=== PATIENT | female | born 1985 | race Caucasian/White ===

== ENCOUNTER 2017-12-07 11:52 | Inpatient (IN) | payer MEDICAID, OTHER ==
[~2017-12-07] VITALS: Ht 165.1 cm; Wt 70.3 kg
[2017-12-07] MEDS ORDERED: HALOPERIDOL LACTATE 5 MG/ML VIAL IM ONE (12:30)
[2017-12-07] MEDS ORDERED: DiphenhydrAMINE HCL 50 MG/ML VIAL IM ONE (12:30)
[2017-12-07] MEDS ORDERED: LORazepam 2 MG/ML VIAL IM ONE (12:30)
[2017-12-07] MEDS ORDERED: GuaiFENesin/D-METHORPHAN [SUGAR-FREE] 200-20MG/10 ML SYRUP UDCUP PO PRN (13:00)
[2017-12-07] MEDS ORDERED: LORazepam 2 MG TABLET PO PRN (13:00)
[2017-12-07] MEDS ORDERED: PROMETHAZINE HCL 25 MG TABLET PO PRN (13:00)
[2017-12-07] MEDS ORDERED: HydrOXYzine PAMOATE 50 MG CAPSULE PO PRN (13:00)
[2017-12-07] MEDS ORDERED: LOPERAMIDE HCL 2 MG CAPSULE PO PRN (13:00)
[2017-12-07] MEDS ORDERED: MAGNESIUM HYDROXIDE SUSPENSION 30 ML UDCUP PO PRN (13:00)
[2017-12-07] MEDS ORDERED: MAG HYDROX/AL HYDROX/SIMETH ES 30 ML SUSPENSION UDCUP PO PRN (13:00)
[2017-12-07] MEDS ORDERED: ACETAMINOPHEN 325 MG TABLET PO PRN ×2 (13:00→14:30)
[2017-12-07] MEDS ORDERED: TUBERCULIN, PURIFIED PROTEIN DERIVATIVE 5 TU/0.1 ML SYG ID ONE (13:00)
[2017-12-07] MEDS ORDERED: ZOLPIDEM TARTRATE 10 MG TABLET PO PRN (13:00)
[2017-12-07] MEDS ORDERED: OLANZapine 5 MG RAPDIS TABLET PO PRN (13:00)
[2017-12-07 13:27] LABS: BASOPHILS % (AUTO) 0.7 % (0.0-2.0); EOSINOPHILS % (AUTO) 0.2 % (1.0-6.0); HEMATOCRIT 35.8 % (36-46); HEMOGLOBIN 12.2 g/dL (12.0-16.0); LYMPHOCYTES # (AUTO) 2.1 K/uL (1.0-4.8); LYMPHOCYTES % (AUTO) 26.3 % (22.0-44.0); MEAN CORPUSCULAR HEMOGLOBIN 31.3 pg (26.0-34.0); MEAN CORPUSCULAR HGB CONC 34.2 G/dL (31.0-37.0); MEAN CORPUSCULAR VOLUME 91 fL (80-100); MONOCYTES # (AUTO) 0.8 K/uL (0.1-1.0); MONOCYTES % (AUTO) 9.7 % (2.0-9.0); NEUTROPHILS % (AUTO) 63.1 % (40.0-70.0); PLATELET COUNT (AUTO) 215 K/uL (150-450); RED BLOOD CELL COUNT(AUTO) 3.92 MIL/uL (4.00-5.20); RED CELL DISTRIBUTION WIDTH 14.4 % (11.5-14.5)
[2017-12-07 13:39] LABS: ANION GAP 11 mmol/L (8-16); CALCIUM, TOTAL 8.8 mg/dL (8.8-10.5); CARBON DIOXIDE 24 mmol/L (22-29); CHLORIDE 106 mmol/L (98-107); CREATININE 0.73 mg/dL (0.60-1.30); GLOMERULAR FILTR. RATE CALC > 60 mL/min (>60); GLUCOSE,RANDOM 89 mg/dL (70-110); POTASSIUM 3.1 mmol/L (3.5-5.1); SODIUM SERUM 141 mmol/L (136-145); UREA NITROGEN, BLOOD 18 mg/dL (7-18)
[2017-12-07 13:44] LABS: ALANINE AMINOTRANSFERASE 29 U/L (12-78); ALBUMIN 3.9 g/dL (3.4-5.0); ALKALINE PHOSPHATASE 66 U/L (46-116); ASPARTATE AMINOTRANSFERASE 23 U/L (15-37); BILIRUBIN,TOTAL 0.8 mg/dL (0.1-1.0); TOTAL PROTEIN, SERUM 7.4 g/dL (6.4-8.2)
[2017-12-07 14:08] LABS: HCG,QUANTITATIVE < 1 mIU/mL (0-6)
[2017-12-07] MEDS ORDERED: POTASSIUM CHLORIDE 20 MEQ ER TABLET PO ONE (14:30)
[2017-12-07] MEDS ORDERED: IBUPROFEN 400 MG TABLET PO PRN (14:30)
[2017-12-07 16:30] VITALS: BP 109/60
[2017-12-07] MEDS: THIAMINE HCL 100 MG TABLET PO SCH (18:18)
[2017-12-07] MEDS: OLANZapine 5 MG RAPDIS TABLET PO SCH (21:00)
[2017-12-07 21:28] LABS: GLUCOMETER DEV NAME(LOC) BV3S 2; GLUCOSE,POINT OF CARE 402 MG/DL (70-110)
[2017-12-08 06:21] VITALS: BP 112/67
[2017-12-08 08:12] VITALS: BP 126/64
[2017-12-08] MEDS: FOLIC ACID 1 MG TABLET PO SCH (09:35)
[2017-12-08] MEDS: THIAMINE HCL 100 MG TABLET PO SCH ×2 (09:35→17:00)
[2017-12-08] MEDS: MULTIVITAMINS WITH MINERALS, THERAPEUTIC TABLET PO SCH (09:36)
[2017-12-08] MEDS ORDERED: IBUPROFEN 400 MG TABLET PO PRN (14:30)
[2017-12-08] MEDS ORDERED: ACETAMINOPHEN 325 MG TABLET PO PRN (14:30)
[2017-12-08] MEDS ORDERED: GLUCAGON,HUMAN RECOMBINANT 1 MG VIAL IM PRN (14:30)
[2017-12-08] MEDS ORDERED: INSULIN LISPRO 100 UNITS/ML SQ PRN (14:30)
[2017-12-08 16:21] VITALS: BP 114/67
[2017-12-08 18:40] VITALS: BP 115/75
[2017-12-08] MEDS: OLANZapine 5 MG RAPDIS TABLET PO SCH (20:47)
[2017-12-09 05:55] VITALS: BP 100/63
[2017-12-09] MEDS: FOLIC ACID 1 MG TABLET PO SCH (09:04)
[2017-12-09] MEDS: THIAMINE HCL 100 MG TABLET PO SCH ×2 (09:04→17:21)
[2017-12-09] MEDS: MULTIVITAMINS WITH MINERALS, THERAPEUTIC TABLET PO SCH (09:04)
[2017-12-09 16:13] VITALS: BP 113/61
[2017-12-09] MEDS ORDERED: OLANZapine 10 MG RAPDIS TABLET PO SCH (21:00)
[2017-12-10 07:10] VITALS: BP 133/70
[2017-12-10] MEDS: THIAMINE HCL 100 MG TABLET PO SCH (08:35)
[2017-12-10] MEDS: FOLIC ACID 1 MG TABLET PO SCH (08:35)
[2017-12-10] MEDS: MULTIVITAMINS WITH MINERALS, THERAPEUTIC TABLET PO SCH (08:35)
[2017-12-10] MEDS ORDERED: OLAN10TA22 PO (13:42)
== END 2017-12-10 15:04 | disposition home or self-care (01) | DRG 751 ==
LOC: EMS 11:54 → B3A 14:11
PROVIDERS: ADMIT Psychiatry & Neurology Psychiatry; ATTEND Psychiatry & Neurology Psychiatry
DX: F29 Unspecified psychosis not due to a substance or known physiological condition (principal); Z78.1 Physical restraint status; I10 Essential (primary) hypertension; Z91.19 Patient's noncompliance with other medical treatment and regimen; E87.6 Hypokalemia; R73.9 Hyperglycemia, unspecified; R00.0 Tachycardia, unspecified; F17.200 Nicotine dependence, unspecified, uncomplicated; Z59.0 Homelessness
CPT/HCPCS: 96372; 99291; G0480; J1200; J1630; J2060